=== PATIENT | female | born 2000 | race Caucasian/White ===

== ENCOUNTER 2025-01-31 17:42 | Emergency (ER) | payer OTHER, SELFPAY ==
[2025-01-31 17:44] VITALS: BP 123/98
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
[2025-01-31] MEDS: MOTRIN 600 MG PO (19:06)
[2025-01-31] MEDS: PERCOCET 5/325 1 TABLET PO (19:40)
== END 2025-01-31 20:16 | disposition home or self-care (01) ==
LOC: EMR 17:42
PROVIDERS: EMERGENCY PHYSICIAN Emergency Medicine; FAMILY PHYSICIAN Family Medicine
DX: S82.144A Nondisplaced bicondylar fracture of right tibia, initial encounter for closed fracture (principal); W17.81XA Fall down embankment (hill), initial encounter; Y93.23 Activity, snow (alpine) (downhill) skiing, snowboarding, sledding, tobogganing and snow tubing; G43.909 Migraine, unspecified, not intractable, without status migrainosus; F41.9 Anxiety disorder, unspecified; F32.A Depression, unspecified
CPT/HCPCS: 99283; 29505; 73564

== ENCOUNTER → 2025-02-02 14:09 | Outpatient (REF) | payer OTHER, SELFPAY | LOC: MRI 3T 14:09 | PROVIDERS: ATTENDING PHYSICIAN Physician Assistant; FAMILY PHYSICIAN Family Medicine | DX: M25.561 Pain in right knee (principal) | CPT/HCPCS: 73721 ==

== ENCOUNTER 2025-02-11 06:31 | Day surgery (SDC) | payer OTHER, SELFPAY ==
[2025-02-11] VITALS (8 sets, daily range): BP systolic 118–129; BP diastolic 74–89
[2025-02-11] MEDS: CELEBREX 200 MG PO (07:50)
[2025-02-11] MEDS: TYLENOL 1000 MG PO (07:50)
[2025-02-11] MEDS: NORMOSOL-R/PLASMALYTE-A 1000 IV (07:51)
[2025-02-11] MEDS: DILAUDID 0.5 MG IV (12:48)
[2025-02-11] MEDS: ROXICODONE 5 MG PO (13:57)
== END 2025-02-11 14:50 | disposition home or self-care (01) ==
LOC: SDS 06:31
PROVIDERS: ATTENDING PHYSICIAN Orthopaedic Surgery
DX: S82.141A Displaced bicondylar fracture of right tibia, initial encounter for closed fracture (principal); X58.XXXA Exposure to other specified factors, initial encounter
CPT/HCPCS: 29855; C1713

== ENCOUNTER 2025-04-22 09:58 | Outpatient (RCR) | payer OTHER, SELFPAY | END 2025-04-22 23:59 | disposition home or self-care (01) | LOC: RPT 09:58 | PROVIDERS: ATTENDING PHYSICIAN Orthopaedic Surgery; FAMILY PHYSICIAN Family Medicine | DX: Z47.89 Encounter for other orthopedic aftercare (principal); M25.561 Pain in right knee; S82.114D Nondisplaced fracture of right tibial spine, subsequent encounter for closed fracture with routine healing; Z73.6 Limitation of activities due to disability; R26.89 Other abnormalities of gait and mobility; M62.81 Muscle weakness (generalized) | CPT/HCPCS: 97110; 97112; 97161; 97530 ==

== ENCOUNTER 2025-05-21 09:34 | Outpatient (RCR) | payer OTHER, SELFPAY | END 2025-05-21 23:59 | disposition home or self-care (01) | LOC: RPT 09:34 | PROVIDERS: ATTENDING PHYSICIAN Orthopaedic Surgery; FAMILY PHYSICIAN Family Medicine | DX: Z47.89 Encounter for other orthopedic aftercare (principal); M25.561 Pain in right knee; S82.114D Nondisplaced fracture of right tibial spine, subsequent encounter for closed fracture with routine healing; Z73.6 Limitation of activities due to disability; R26.89 Other abnormalities of gait and mobility; M62.81 Muscle weakness (generalized) | CPT/HCPCS: 97110; 97112; 97140; 97530 ==

== ENCOUNTER 2025-06-07 16:58 | Outpatient (RCR) | payer OTHER, SELFPAY | END 2025-06-07 23:59 | disposition home or self-care (01) | LOC: RPT 16:58 | PROVIDERS: ATTENDING PHYSICIAN Orthopaedic Surgery; FAMILY PHYSICIAN Family Medicine | DX: S82.114D Nondisplaced fracture of right tibial spine, subsequent encounter for closed fracture with routine healing (principal); M25.561 Pain in right knee; Z73.6 Limitation of activities due to disability; R26.89 Other abnormalities of gait and mobility; Z47.89 Encounter for other orthopedic aftercare; M62.81 Muscle weakness (generalized) | CPT/HCPCS: 97110; 97112; 97530 ==